=== PATIENT | female | born 1980 | race Caucasian/White ===

== ENCOUNTER 2019-10-22 13:55 | Emergency (ER) | payer MEDICAID ==
[~2019-10-22] VITALS: Ht 165.1 cm; Wt 85.0 kg
[2019-10-22 14:25] VITALS: BP 130/90
[2019-10-22] MEDS ORDERED: ALPRAZOLAM 0.25 MG TABLET PO ONE (14:45)
== END 2019-10-22 14:57 | disposition home or self-care (01) ==
LOC: ER 13:55
DX: F41.9 Anxiety disorder, unspecified (principal); F32.9 Major depressive disorder, single episode, unspecified; Z98.890 Other specified postprocedural states
CPT/HCPCS: 99281

== ENCOUNTER 2020-01-07 11:46 | Emergency (ER) | payer MEDICAID ==
[~2020-01-07] VITALS: Ht 160 cm; Wt 92.0 kg
[2020-01-07] MEDS ORDERED: SODIUM CHLORIDE 0.9% 1,000 ML IV ONE (12:39)
[2020-01-07 13:03] LABS: BASOPHILS % 0.6 % (0.0-2.0); EOSINOPHILS % 1.9 % (0.0-5.0); HEMATOCRIT. 37.6 % (36.0-48.0); HEMOGLOBIN. 12.7 g/dL (12.0-16.0); MEAN CORPUSCULAR HEMOGLOBIN 28.3 pg (28.0-32.0); MEAN CORPUSCULAR VOLUME 83.7 fL (81.0-99.0); MEAN PLATELET VOLUME 8.7 fl (7.4-10.4); MONOCYTES % 4.7 % (2.0-8.0); NEUTROPHILS % 76.8 % (40.0-76.0); PLATELET 272 x1000/uL (130-400); RED BLOOD CELL COUNT 4.49 mill/uL (4.2-5.4); RED CELL DISTRIBUTION WIDTH 15.1 % (11.6-14.6)
[2020-01-07 13:08] LABS: CHLORIDE 107 mEq/L (98-107)
[2020-01-07 13:32] LABS: B-HCG QUANTITATIVE 151684 mIU/mL (<3)
[2020-01-07 14:33] VITALS: BP 125/72
[2020-01-07 14:41] LABS: CLARITY URINE CLEAR (CLEAR); COLOR URINE YELLOW (YELLOW); KETONES URINE TRACE (NEGATIVE); LEUKOCYTE ESTERASE URINE TRACE (NEGATIVE); NITRITE URINE NEGATIVE (NEGATIVE); OCCULT BLOOD URINE NEGATIVE (NEGATIVE); PH URINE 6.5 (4.5-8.0); PROTEIN URINE NEGATIVE (NEGATIVE); SPECIFIC GRAVITY URINE 1.021 (1.005-1.030)
== END 2020-01-07 15:15 | disposition home or self-care (01) ==
LOC: ER 11:46
DX: R00.2 Palpitations (principal); Z11.59 Encounter for screening for other viral diseases
CPT/HCPCS: 36415; 71045; 80053; 81003; 83880; 84484; 84702; 85025; 85379; 93005; 99285; C9803; J7030; U0003; 87635

== ENCOUNTER 2020-06-13 15:35 | Observation (INO) | payer MEDICAID ==
[2020-06-13 17:16] LABS: CLARITY URINE CLEAR (CLEAR); COLOR URINE YELLOW (YELLOW); KETONES URINE TRACE (NEGATIVE); LEUKOCYTE ESTERASE URINE NEGATIVE (NEGATIVE); NITRITE URINE NEGATIVE (NEGATIVE); OCCULT BLOOD URINE NEGATIVE (NEGATIVE); PH URINE 5.5 (4.5-8.0); PROTEIN URINE NEGATIVE (NEGATIVE); SPECIFIC GRAVITY URINE 1.026 (1.005-1.030); UROBILINOGEN URINE 0.2 E.U./dL (0.2-1.0)
[2020-06-13] MEDS ORDERED: PNV1TABL50 MT (17:26)
== END 2020-06-13 17:40 | disposition home or self-care (01) ==
LOC: UNDOADMOB 15:35 → 8EST NSY 15:35 → 8 EST LDRP 15:35
PROVIDERS: ADMIT Specialist; ATTEND Specialist
DX: O26.893 Other specified pregnancy related conditions, third trimester (principal); R10.30 Lower abdominal pain, unspecified; Z3A.30 30 weeks gestation of pregnancy
CPT/HCPCS: 59025; 81003; G0378; 99281

== ENCOUNTER 2020-07-19 15:46 | Observation (INO) | payer MEDICAID ==
[~2020-07-19 15:46] MED LIST: PNV1TABL50 MT
[2020-07-19] MEDS ORDERED: LACTATED RINGERS 1,000 ML IV SCH (16:30)
[2020-07-19 16:56] LABS: CLARITY URINE CLOUDY (CLEAR); COLOR URINE YELLOW (YELLOW); KETONES URINE TRACE (NEGATIVE); LEUKOCYTE ESTERASE URINE TRACE (NEGATIVE); NITRITE URINE NEGATIVE (NEGATIVE); OCCULT BLOOD URINE NEGATIVE (NEGATIVE); PH URINE 5.5 (4.5-8.0); PROTEIN URINE TRACE (NEGATIVE); SPECIFIC GRAVITY URINE 1.028 (1.005-1.030)
[2020-07-19] MEDS ORDERED: CEFAZOLIN 2,000 MG in DEXT 5% WATER 100 ML IV SCH (19:00)
== END 2020-07-19 19:45 | disposition home or self-care (01) ==
LOC: 8 EST LDRP 15:46
PROVIDERS: ADMIT Obstetrics & Gynecology; ATTEND Obstetrics & Gynecology
DX: O26.893 Other specified pregnancy related conditions, third trimester (principal); O09.523 Supervision of elderly multigravida, third trimester; R10.30 Lower abdominal pain, unspecified; Z3A.35 35 weeks gestation of pregnancy
CPT/HCPCS: 59025; 76805; 76817; 76818; 81003; 96361; 96365; G0378; J0690; J7060; 96360; 99281

== ENCOUNTER 2021-09-16 16:23 | Inpatient (IN) | payer MEDICAID ==
[~2021-09-16] VITALS: Ht 165.1 cm; Wt 112.5 kg
[~2021-09-16 16:23] MED LIST changes: +ESCI10TA PO; +FERR325T23 PO; +IBUP-2030 PO
[2021-09-16 18:38] LABS: BASOPHILS % 0.9 % (0.0-2.0); EOSINOPHILS % 2.8 % (0.0-5.0); HEMATOCRIT. 38.1 % (36.0-48.0); HEMOGLOBIN. 12.9 g/dL (12.0-16.0); LYMPHOCYTES % 26.1 % (20.0-50.0); MEAN CORPUSCULAR HEMOGLOBIN 25.5 pg (28.0-32.0); MEAN CORPUSCULAR VOLUME 75.5 fL (81.0-99.0); NEUTROPHILS % 64.2 % (40.0-76.0); RED BLOOD CELL COUNT 5.05 mill/uL (4.2-5.4); RED CELL DISTRIBUTION WIDTH 15.8 % (11.6-14.6)
[2021-09-16 18:45] LABS: CHLORIDE 111 mEq/L (98-107)
[2021-09-16 19:17] LABS: MEAN PLATELET VOLUME 8.4 fl (7.4-10.4); PLATELET 303 x1000/uL (130-400)
[2021-09-17 10:00] VITALS: BP 166/49
[2021-09-17 10:43] VITALS: BP 166/49
[2021-09-17 12:00] VITALS: BP 136/49
[2021-09-17] MEDS ORDERED: KETOROLAC 30MG/ML VIAL IV ONE (12:45)
[2021-09-17] MEDS ORDERED: KETOROLAC 30MG/ML VIAL IV NR (13:45)
[2021-09-17 16:00] VITALS: BP 125/62
[2021-09-17 17:18] LABS: LDL CHOLESTEROL 87 mg/dL (5-100)
[2021-09-17 17:19] LABS: HDL CHOLESTEROL 52 mg/dL (40-59)
[2021-09-17] MEDS ORDERED: PANTOPRAZOLE SODIUM 40 MG/VIAL IV SCH (17:30)
[2021-09-17 20:00] VITALS: BP 140/80
[2021-09-18 00:20] VITALS: BP 134/65
[2021-09-18 04:00] VITALS: BP 123/54
[2021-09-18 07:14] LABS: BASOPHILS % 0.6 % (0.0-2.0); EOSINOPHILS % 3.6 % (0.0-5.0); HEMATOCRIT. 36.3 % (36.0-48.0); HEMOGLOBIN. 12.1 g/dL (12.0-16.0); LYMPHOCYTES % 27.2 % (20.0-50.0); MEAN CORPUSCULAR VOLUME 75.1 fL (81.0-99.0); MEAN PLATELET VOLUME 8.4 fl (7.4-10.4); MONOCYTES % 6.5 % (2.0-8.0); NEUTROPHILS % 62.1 % (40.0-76.0); PLATELET 299 x1000/uL (130-400); RED BLOOD CELL COUNT 4.83 mill/uL (4.2-5.4); RED CELL DISTRIBUTION WIDTH 15.7 % (11.6-14.6)
[2021-09-18 07:50] LABS: CHLORIDE 107 mEq/L (98-107)
[2021-09-18 08:00] VITALS: BP 136/58
[2021-09-18] MEDS ORDERED: REGADENOSON 0.4 MG/5 ML IV ONE ×2 (08:15→12:25)
[2021-09-18 10:25] LABS: LDL CHOLESTEROL 92 mg/dL (5-100)
[2021-09-18 10:27] LABS: HDL CHOLESTEROL 47 mg/dL (40-59)
[2021-09-18] MEDS ORDERED: ASPI-1497 MT (15:18)
[2021-09-18] MEDS ORDERED: PANT40SU MT (15:22)
[2021-09-18 16:41] VITALS: BP 128/62
== END 2021-09-18 18:41 | disposition home or self-care (01) | DRG 243 ==
LOC: ER 16:46 → EEVIPCON 09-17 01:05 → MICUSO 09-17 01:05 → 6WST 09-17 09:45
PROVIDERS: ADMIT Internal Medicine; ATTEND Internal Medicine
DX: K21.9 Gastro-esophageal reflux disease without esophagitis (principal); E87.8 Other disorders of electrolyte and fluid balance, not elsewhere classified; E66.9 Obesity, unspecified; F32.A Depression, unspecified; F41.9 Anxiety disorder, unspecified; Z20.822 Contact with and (suspected) exposure to COVID-19; Z79.899 Other long term (current) drug therapy; Z82.49 Family history of ischemic heart disease and other diseases of the circulatory system; Z98.84 Bariatric surgery status; Z98.891 History of uterine scar from previous surgery; Z68.41 Body mass index [BMI] 40.0-44.9, adult; Z90.3 Acquired absence of stomach [part of]; Z87.898 Personal history of other specified conditions
CPT/HCPCS: 36415; 71045; 78452; 80048; 80053; 80061; 83880; 84484; 85025; 85379; 87426; 93005; 93017; 93306; 99285; A9500; A9537; C9113; J2785